=== PATIENT | female | born 1945 | race Caucasian/White ===

== ENCOUNTER 2018-07-28 05:35 | Day surgery (SDC) | payer MEDICARE, OTHER ==
[~2018-07-28] VITALS: Ht 170.2 cm; Wt 85.7 kg
[~2018-07-28 05:35] MED LIST: ASPIR-LOW81 MG PO; ATENOLOL50 MG PO; CALCIUM 500 +1 EAC2 PO; LOVASTATIN10 MG PO; NORVASC5 MG PO
--- NOTE | 2018-07-28 08:36 | NUR ---
07/28/18 0836 FanyRenetta bliss 0824- PT ARRIVES TO PACU ON 6L VIA MASK. OXYGEN SAT HIGH 90'S ON THIS. PT IS AROUSABLE TO TOUCH. DOES NOT FOLLOW COMMANDS OR ANSWER QUESTIONS AT THIS TIME. INSTANTLY BACK TO SLEEP. 0830- PT MORE AROUSABLE AND ABLE TO ANSWER QUESTIONS APPROPRIATELY. PT DENIES PAIN, NAUSEA, OR DIZZINESS. INSTANTLY BACK TO SLEEP WHEN NOT BEING TALKED TO. 0832- OXYGEN TURNED OFF PT IS TRYING TO PULL OXYGEN MASK OFF OF HER FACE TO SCRATCH HER NOSE. 0835- PT PLACED ON 2L O2 VIA NC FOR OXYGEN SAT DROPPING TO 89% ON RA. PT REMAINS EASILY AROUSABLE TO VOICE.
--- NOTE | 2018-07-28 08:53 | NUR ---
PT IS BACK TO DS FROM PACU. IS AT THE BEDSIDE. WATER ON BEDSIDE TABLE. PT DENIES ANY PAIN AT THIS TIME, SHE WOULD JUST LIKE TO SLEEP. CALL LIGHT IS WTIHIN REACH. NO OTHER C/O'S AT THIS TIME. WILL REASSESS WITHIN THE HOUR.
--- NOTE | 2018-07-28 10:26 | NUR ---
RAFAEL 0950: PT IS ASSISTED UP OOB TO THE RESTROOM. SHE IS ABLE TO AMBULATE HERSELF TO AND FROM. SHE INDICATES THAT SHE WOULD LIKE TO GO HOME. SHE IS INSTRUCTED ON HOW BEST TO DRESS.
--- NOTE | 2018-07-28 10:27 | NUR ---
PT IS GIVEN DC INSTRUCTIONS AND SHE VERBALIZES UNDERSTANDING. SHE TRANSFERS HERSELF FROM BED TO WC, THEN WC TO VEHICLE.
--- NOTE | 2018-07-28 12:05 | OR ---
[facility] [address], [place] [address] Signed DATE OF OPERATION: 07/28/2018 SURGEON: Mick Hernandez MD PREOPERATIVE DIAGNOSES: 1. Urinary urgency and frequency. 2. Gross hematuria. 3. A 1 cm bladder mass seen on recent cystoscopy. POSTOPERATIVE DIAGNOSES: 1. Urinary urgency and frequency. 2. Gross hematuria. 3. A 1 cm bladder mass seen on recent cystoscopy. NAMES OF PROCEDURES: 1. Transurethral resection of bladder tumor, small. 2. Urethral dilation, from 20-Palestinian to 26-Palestinian. ANESTHESIA: General. ESTIMATED BLOOD LOSS: Minimal. COMPLICATIONS: None. SPECIMENS: 1. Bladder mass. 2. Tumor base. DRAINS: None. INDICATIONS FOR PROCEDURE: Ms. Perez is a very pleasant 73-year-old female who recently presented to me with complaints of progressively worsening urinary urgency, frequency, and nocturia. In her HPI, she also mentioned that she had seen some blood in her underwear, which prompted a gross hematuria evaluation. She underwent cystoscopy, which revealed approximately 8 mm pedunculated bladder mass located near the bladder neck. She presents today to undergo Electronically Signed By: MICK HERNANDEZ MD 07/28/18 1205 PATIENT NAME: DEONDRE PEREZ OPERATIVE REPORT DATE OF : 45 REPORT #: [id number] PHYSICIAN: MICK HERNANDEZ MD PCP: ELSA CERVANTES NP REPORT IS CONFIDENTIAL AND NOT TO BE RELEASED WITHOUT AUTHORIZATION [facility] [address] [facility] [place], [place] [address] Signed excision of the tumor. OPERATIVE FINDINGS: 1. 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 No evidence of bladder wall trabeculation. Bilateral ureteral orifices are in their normal anatomic location effluxing clear urine. There is no evidence of bladder stones. There is an approximately 1 cm pedunculated bladder mass located just proximal to the bladder neck, closer to the right ureteral orifice. 2. The mass measures around 1 cm in size, and was resected using a 23-Palestinian bipolar loop without difficulty. A 2nd resection of the tumor base was also performed. The area was then cauterized thoroughly. DESCRIPTION OF PROCEDURE: After informed consent was obtained, the patient was taken back to the operating room. She was transferred from the [facility] to the operating room table, where general anesthesia was induced. She was placed in the dorsal lithotomy position and her genitalia were prepped and draped in a standard sterile fashion. Using a 30-degree lens on a 22.5-Palestinian introducer, rigid cystoscope was inserted through the urethra into her bladder under direct visualization. Panendoscopic views of the bladder were then obtained. Please see above findings. After cystoscopy was performed, the cystoscope was removed and the patient's urethra was dilated from 20-Palestinian to 26-Palestinian using [place] sounds. Once this was completed, I inserted the resectoscope via a 26-Palestinian sheath into the patient's bladder. The 1 cm tumor was then very carefully excised from the bladder wall using a bipolar loop. The specimen was placed in a specimen cup to be sent to pathology. I then performed a 2nd resection of the tumor base and this tissue was sent in a separate specimen cup to pathology. The tumor bed was then cauterized to achieve hemostasis. The bilateral ureteral orifices remained in full view the entire time and there was no evidence of any damage to the ureters during the cautery portion of the procedure. The patient's bladder was then drained and the resectoscope was removed. The procedure was then terminated. The patient tolerated the procedure well without any complication. She will now be transferred to the postanesthesia care unit in stable condition. DISPOSITION: I discussed the details of today's procedure with the patient's and answered all of his questions. I explained to him that at this point in time, I suspect that this may be a polyp, more so than a bladder tumor. That was the reason why I did not administer intravesical mitomycin today. I have told him that I would contact the patient to discuss her pathology results once they are available in approximately 5-7 days. She will be discharged to home today in stable condition in the company of her . She will be given [place] 5/325, dispense #15 q.6 hours p.r.n. pain, along with Bactrim double strength for a total of 5 days. If this does glove turner to be a malignant Electronically Signed By: MICK HERNANDEZ MD 07/28/18 1205 PATIENT NAME: DEONDRE PEREZ OPERATIVE REPORT DATE OF : 45 REPORT #: [id number] PHYSICIAN: MICK HERNANDEZ MD PCP: ELSA CERVANTES NP REPORT IS CONFIDENTIAL AND NOT TO BE RELEASED WITHOUT AUTHORIZATION [address] [address] Signed polyp, then she will begin q.3 months surveillance cystoscopies. If not, we can go ahead and proceed with management of her urinary urgency, frequency, and nocturia symptoms. Mick Hernandez MD AR/MODL /[id number] Copies: ~ Electronically Signed By: MICK HERNANDEZ MD 07/28/18 1205 PATIENT NAME: DEONDRE PEREZ OPERATIVE REPORT DATE OF : 45 REPORT #: [id number] PHYSICIAN: MICK HERNANDEZ MD PCP: ELSA CERVANTES NP REPORT IS CONFIDENTIAL AND NOT TO BE RELEASED WITHOUT AUTHORIZATION
== END 2018-07-28 10:15 | disposition home or self-care (01) ==
LOC: DS 05:35
PROVIDERS: Urology
PROC: 0TBB8ZX Excision of Bladder, Via Natural or Artificial Opening Endoscopic, Diagnostic (ICD-10-PCS; principal; 2018-07-28 06:45)
DX: C67.9 Malignant neoplasm of bladder, unspecified (principal); N30.91 Cystitis, unspecified with hematuria; E78.5 Hyperlipidemia, unspecified; I10 Essential (primary) hypertension; Z87.891 Personal history of nicotine dependence; Z79.82 Long term (current) use of aspirin; Z79.899 Other long term (current) drug therapy
CPT/HCPCS: 88302; 88305; J0330; J0696; J2250; J2405; J2704; J3010; J7120

== ENCOUNTER 2025-11-01 05:35 | Day surgery (SDC) | payer MEDICARE, OTHER ==
[~2025-11-01] VITALS: Ht 170.2 cm; Wt 81.0 kg
[~2025-11-01 05:35] MED LIST changes: +DULOXETINE HCL 60 MG CAP PO SCH; +EXEMESTANE25 MG PO; +FLUTICASONE PRO16 GM NAS; +LACTATED RINGER'S 1,000 ML IV SCH; +LEVOTHYROXINE50 MC1 PO; +OXYBUTYNIN CHLOR5 M1 PO; +PRESERVISION A1 EAC3 PO; +PRESERVISION A1 EAC6 PO; +TRIAMTERENE-HC1 EAC1 PO; +VITAMIN D325 MC4 PO
[2025-11-01 06:08] VITALS: BP 139/61
[2025-11-01] MEDS ORDERED: LIDOCAINE HCL 2% 5 ML SDV ONE ×2 (06:14→09:03)
[2025-11-01 06:21] LABS: BASOPHILS 0.6 % (0.1-1.2); EOSINOPHILS 3.0 % (0.7-5.8); LYMPHOCYTES 16.1 % (19.3-51.7); MCH 28.3 PG (25.6-32.2); MCHC 33.8 g/dL (32.2-35.5); MCV 83.8 fL (79.4-94.8); MONOCYTES 9.2 % (4.7-12.5); NEUTROPHILS 70.7 % (34.0-71.1); RBC 4.45 M/uL (3.93-5.22)
[2025-11-01] MEDS ORDERED: Ropivacaine HCl 0.5% 30 ML VIAL ONE ×2 (06:22→12:40)
[2025-11-01] MEDS ORDERED: Ropivacaine HCl 20 MG/10 ML AMP ONE (06:27)
[2025-11-01 06:53] LABS: ALT (SGPT) 25.0 U/L (14-59); AST (SGOT) 18.0 U/L (15-37); GLOMERULAR FILTRATION RATE,EST 34.0 mL/min (>60); PROTEIN, TOTAL 7.4 g/dL (6.4-8.2); UREA NITROGEN 49.0 mg/dL (7-18)
[2025-11-01] MEDS ORDERED: ROPIVACAINE IN 0.9% SOD CHL/PF 545 ML ELS.PMP.HR IRRIGATION SCH (07:00)
[2025-11-01] MEDS ORDERED: IBLOOD GLUCOSE TEST STRIP 1 EA TEST VI PRN ×2 (07:00→10:15)
[2025-11-01] MEDS ORDERED: OXYCODONE HCL 5 MG TAB PO PRN (07:00)
[2025-11-01] MEDS ORDERED: KETOROLAC TROMETHAMINE 30 MG/ML VIAL IV PRN (07:00)
[2025-11-01] MEDS ORDERED: CEFAZOLIN SODIUM 2 GM in SODIUM CHLORIDE 0.9% 100 ML IV SCH ×2 (07:00→15:00)
[2025-11-01] MEDS ORDERED: LIDOCAINE HCL 1% 5 ML SDV INJ ONE (07:00)
[2025-11-01] MEDS ORDERED: TRANEXAMIC ACID IN NACL,ISO-OS 1,000 MG/100 ML PIGGYBACK IV SCH ×3 (07:00→13:15)
[2025-11-01] MEDS ORDERED: [UNRECOGNIZED DRUG - REMARK] XX SCH (07:00)
[2025-11-01] MEDS ORDERED: PANTOPRAZOLE SODIUM 40 MG TABEC PO SCH (07:00)
[2025-11-01] MEDS ORDERED: OXYCODONE HCL 5 MG TAB PO SCH (07:00)
[2025-11-01 08:39] LABS: GLOMERULAR FILTRATION RATE,EST 44.0 mL/min (>60); UREA NITROGEN 45.0 mg/dL (7-18)
[2025-11-01] MEDS ORDERED: TRANEXAMIC ACID 1,000 MG/10 ML AMP ONE (09:54)
[2025-11-01] MEDS ORDERED: ACETAMINOPHEN 1,000 MG/100 ML VIAL ONE (10:07)
[2025-11-01] MEDS ORDERED: HYDROmorphone HCL 1 MG/ML SYR IV PRN (10:15)
[2025-11-01] MEDS ORDERED: fentaNYL citrate 50 MCG/ML SDV IV PRN (10:15)
[2025-11-01] MEDS ORDERED: NALOXONE HCL 0.4 MG SYR IV PRN (10:15)
[2025-11-01] MEDS ORDERED: PHENYLEPHRINE HCL IN 0.9% NACL 1 MG/10 ML SYR ONE (10:40)
[2025-11-01] MEDS ORDERED: CEFUROXIME250 MG PO (10:44)
[2025-11-01] MEDS ORDERED: ACETAMINOPHEN500 MG PO (10:44)
[2025-11-01] MEDS ORDERED: ASPIRIN325 MG PO (10:44)
[2025-11-01] MEDS ORDERED: OXYCODONE HCL5 M1 PO (10:44)
[2025-11-01] MEDS ORDERED: DULOXETINE HCL30 MG PO (10:45)
[2025-11-01] MEDS ORDERED: SENNA LAX8.6 MG PO (10:45)
[2025-11-01] MEDS ORDERED: TRANEXAMIC ACI650 MG PO (10:50)
--- NOTE | 2025-11-01 11:04 | NUR ---
11/01/25 1104 Sol Ahmadi 1053: PT ARRIVES TO PACU, NON AROUSAL/REACTIVE. PT CONNECTED TO MONITORS. REPORT RECEIVED FROM [employer] AND POT TENDER. RAFAEL 1102: XRAY AT THE BEDSIDE FOR LEFT KNEE IMAGING.
[2025-11-01 11:33] VITALS: BP 122/51
--- NOTE | 2025-11-01 11:41 | NUR ---
1131-PT BACK TO ROOM FROM PACU ON RA. RECEIVED REPORT FROM GENARO FREIRE. PT IS AWAKE. RESP EVEN AND UNLABORED. CRYO CUFF IN PLACE AND RUNNING. ON-Q PUMP SET AT 4. PT STATES LEG IS HEAVY. PT DRINKING WATER AND EATING PUDDING. 1141-PT NOW RATES PAIN A 7/10. PAIN MEDICATION GIVEN PER EMAR. NO OTHER NEEDS AT THIS TIME. CALL LIGHT WITHIN REACH.
--- NOTE | 2025-11-01 12:06 | NUR ---
1145-VO PER WILL SETTLEMENT PROCESSOR FOR ZOFRAN 4MG. 1158-NAUSEA MEDICATION GIVEN. 1203-VO PER DR. AUGUST TO TURN ON-Q PUMP TO 8. 1207-ON-Q PUMP SET AT 8.
[2025-11-01 12:26] VITALS: BP 132/45
--- NOTE | 2025-11-01 12:26 | NUR ---
PT LAYING IN BED AWAKE. RESP EVEN AND UNLABORED. RATES PAIN 7/10 AND DENIES NAUSEA. CRYO CUFF IN PLACE AND RUNNING. ON-Q PUMP SET AT 8. DAUGHTER AT BEDSIDE. CALL LIGHT WITHIN REACH.
[2025-11-01 13:31] VITALS: BP 123/56
--- NOTE | 2025-11-01 13:42 | NUR ---
LE 1220-PHONE CALL TO WILL PREFLIGHT INSPECTOR RE PT. WILL COME IN TO EVALUATE PT. LE 1236-WILL IN ROOM WITH PT. LE 1242-WILL BOLUSED ON-Q PUMP.
--- NOTE | 2025-11-01 13:43 | NUR ---
LE 1254-PT RATES PAIN A /. NO OTHER NEEDS AT THIS TIME. CALL LIGHT WITHIN REACH.
--- NOTE | 2025-11-01 13:44 | NUR ---
1320-PT SITTING AT THE BEDSIDE. PT ABLE TO PIVOT TO COMMODE. PT ABLE TO VOID 250ML OF YELLOW URINE. 1332-PT LAYING IN BED AWAKE. RESP EVEN AND UNLABORED. PAIN IS TOLERABLE. DENIES NAUSEA. CRYO CUFF IN PLACE AND RUNNING. ON-Q PUMP SET AT 8. DAUGHTER AT BEDSIDE. NO OTHER NEEDS AT THIS TIME. CALL LIGHT WITHIN REACH.
--- NOTE | 2025-11-01 14:19 | NUR ---
1413-PT C/O N/V. PT VOMITS 500CC. ORDERS FOR INAPSINE PER WILL JAYNE.
--- NOTE | 2025-11-01 14:21 | NUR ---
1420-PHYSCIAL THERAPY IN ROOM WITH PT.
[2025-11-01] MEDS ORDERED: ACETAMINOPHEN 500 MG TAB PO SCH (15:00)
[2025-11-01 15:11] VITALS: BP 121/54
--- NOTE | 2025-11-01 16:37 | NUR ---
LE 1500-PT BACK TO ROOM FROM PHYSICAL THERAPY. PT GETTING DRESSED. LE 1511-PT LAYING IN BED. RESP EVEN AND UNLABORED. RATES PAIN 5/10. DENIES NAUSEA. PT IS GETTING IV ANCEF AND THEN WILL GO HOME.
--- NOTE | 2025-11-01 17:01 | NUR ---
1545-WENT OVER DISCHARGE INSTRUCTIONS WITH PT AND HER DAUGHTER. ALL QUESTIONS ANSWERED. WENT OVER POSTOP MEDICATIONS. 1552-PT AMBULATES WITH WALKER TO WHEELCHAIR AND RIDE PROVIDED TO FRONT OF HOSPITAL WHERE RIDE WAS WAITING WITH THE CARD.
[2025-11-01] MEDS ORDERED: SENNOSIDES 1 TAB PO SCH (21:00)
[2025-11-02] MEDS ORDERED: ASPIRIN 325 MG TAB PO SCH ×2 (08:00→09:00)
[2025-11-02] MEDS ORDERED: DULOXETINE HCL 30 MG CAP PO SCH (09:00)
--- NOTE | 2025-11-08 06:48 | OR ---
[facility] [address] [place], [place] [address] Signed DATE OF OPERATION: 11/01/2025 SURGEON: Arelis Uriarte MD PREOPERATIVE DIAGNOSIS: Severe degenerative joint disease, left knee. POSTOPERATIVE DIAGNOSIS: Severe degenerative joint disease, left knee. PROCEDURE PERFORMED: Left total knee arthroplasty with Arthur [employer] CONSULTANT: Елена Barrera PA-C. Елена was present and critical for all portions of procedure. ANESTHESIA: Spinal. BLOOD LOSS: 160 mL. TOURNIQUET TIME: Zero. IMPLANTS: [place] Triathlon size 5 femur, 4 tibia, 11 mm polyethylene and 35 mm patella. BRIEF HISTORY: Soumya is an 80-year-old female with progressive worsening of osteoarthritis. She had undergone nonoperative treatment with minimal success. Risks and benefits of operative treatment were discussed with her and she elected to proceed. DESCRIPTION OF PROCEDURE: Once consent was obtained, she was taken to the operating room. After adequate anesthesia, she was placed on the OR table. A hip bump was placed and the left leg was prepped and draped in the standard sterile fashion. The knee was approached through a standard anterior midline incision, carried through skin and subcutaneous tissue. Skin flaps were developed medially and laterally. A low mid vastus arthrotomy was performed Electronically Signed By: ARELIS URIARTE MD 11/08/25 0648 PATIENT NAME: SOUMYA PEREZ OPERATIVE REPORT DATE OF : 45 REPORT #: [id number] PHYSICIAN: ARELIS URIARTE MD PCP: VERO HUNT REPORT IS CONFIDENTIAL AND NOT TO BE RELEASED WITHOUT AUTHORIZATION [facility] [address] [place], [place] [address] Signed and the infrapatellar fat pad was excised. The MCL was elevated as a sleeve around the posteromedial corner. The anterior horns of menisci were transected. The ACL was transected. PCL was found to be intact. The computer arrays were then placed in the distal femur and the proximal tibia. The leg was then registered with the computer followed by the fine anatomic points of the knee. The varus valgus poses were undertaken and slight adjustments were made to the position of the components on the computer. Once the knee was balanced, the robot was brought in. The four straight cut and two angled cuts were made with care taken to protect the patellar tendon and MCL. Bony remnants were removed as were any remaining osteophytes. The posterior osteophytes removed off the femur. No release was performed. The trials were then positioned. Knee was taken from 0-135 degrees with good stability throughout. The patella tracked well. The patella was then cut, sized, and drilled for a 35 mm patella. The distal femoral drill holes were completed. The proximal tibia was completed using the keel punch followed by the four drill holes. The prosthesis was obtained. The tibia was impacted and patella was seated flush. The polyethylene was snapped into position and the femur was impacted until again it was seated flush on the bone cut. The knee was then extended and loaded. The patella was clamped into position until it was seated flush on the cut. The knee was again taken through range of motion and found to be stable. The patella tracked well. The periarticular soft tissue was injected with 100 mL ropivacaine joint injection without Toradol. The knee was irrigated using one bottle of Surgiphor followed by normal saline. The On-Q pain pump was then percutaneously placed into the adductor canal from the suprapatellar pouch. The arthrotomy was then closed using a combination of #2 FiberWire and #2 Stratafix, subcutaneous tissue with 0 Stratafix and the skin with 3-0 Stratafix. The wound was sealed with LiquiBand and dressed with Acticoat-7 dressing, ABDs, and Forest wrap. She tolerated the procedure well. All sponge, needle, and instrument counts were correct. Arelis Uriarte MD BA/MODL /[id number] Electronically Signed By: ARELIS URIARTE MD 11/08/25 0648 PATIENT NAME: SOUMYA PEREZ OPERATIVE REPORT DATE OF : 45 REPORT #: [id number] PHYSICIAN: ARELIS URIARTE MD PCP: VERO HUNT REPORT IS CONFIDENTIAL AND NOT TO BE RELEASED WITHOUT AUTHORIZATION [facility] [address] [place] [address] Signed Copies: ~ Electronically Signed By: ARELIS URIARTE MD 11/08/25 0648 PATIENT NAME: SOUMYA PEREZ OPERATIVE REPORT DATE OF : 45 REPORT #: [id number] PHYSICIAN: ARELIS URIARTE MD PCP: VERO HUNT REPORT IS CONFIDENTIAL AND NOT TO BE RELEASED WITHOUT AUTHORIZATION
== END 2025-11-01 15:52 | disposition home or self-care (01) ==
LOC: DS 05:35
PROVIDERS: ATTEND Specialist
PROC: 3E0T3BZ Introduction of Anesthetic Agent into Peripheral Nerves and Plexi, Percutaneous Approach (ICD-10-PCS; 2025-11-01)
PROC: 0SRD0JZ Replacement of Left Knee Joint with Synthetic Substitute, Open Approach (ICD-10-PCS; principal; 2025-11-01 07:00)
DX: M17.12 Unilateral primary osteoarthritis, left knee (principal); I10 Essential (primary) hypertension; E78.00 Pure hypercholesterolemia, unspecified; Z79.899 Other long term (current) drug therapy; Z87.891 Personal history of nicotine dependence
CPT/HCPCS: 0055T; 27447; 64447; 01402; 36415; 64454; 64473; 73560; 80048; 80053; 85025; 97110; 97116; 97161; 97530; A9270; C1776; J0131; J0165; J0688; J1790; J2003; J2405; J2704; J2795; J7121; J7999